=== PATIENT | male | born 1960 | race Caucasian/White ===

== ENCOUNTER 2024-08-05 11:33 | Inpatient (IN) | payer MEDICARE, OTHER ==
[~2024-08-05] VITALS: Ht 176.5 cm; Wt 77.6 kg
[2024-08-05] MEDS ORDERED: diphenhydrAMINE HCL 50 MG/ML VIAL ONE (11:44)
[2024-08-05] MEDS ORDERED: LORAZEPAM INJ 2 MG/ML VIAL ONE (11:44)
[2024-08-05] MEDS ORDERED: OLANZAPINE 10 MG VIAL IM ONE (11:44)
[2024-08-05] MEDS: LORAZEPAM INJ 2 MG/ML VIAL IM ONE (11:51)
[2024-08-05] MEDS: diphenhydrAMINE HCL 50 MG/ML VIAL IM ONE (11:51)
[2024-08-05] MEDS: OLANZAPINE 10 MG VIAL IM ONE (11:51)
[2024-08-05 12:09] LABS: BASOPHILS % (AUTO) 0.4 % (0.0-2.0); EOSINOPHILS # (AUTO) 0.1 K/uL (0.0-0.7); EOSINOPHILS % (AUTO) 1.5 % (0.0-6.0); HEMATOCRIT 51 % (39-51); HEMOGLOBIN 17.4 g/dL (13.5-17.5); LYMPHOCYTES # (AUTO) 2.4 K/uL (0.8-4.8); LYMPHOCYTES % (AUTO) 37.6 % (20.0-44.0); MEAN CORPUSCULAR HEMOGLOBIN 32 PG (26.0-33.0); MEAN CORPUSCULAR HGB CONC 34 g/dl (31.0-36.0); MEAN CORPUSCULAR VOLUME 93 fL (80-96); MONOCYTES # (AUTO) 0.3 K/uL (0.1-1.30); MONOCYTES % (AUTO) 5.1 % (2.0-12.0); NEUTROPHILS # (AUTO) 3.6 K/uL (1.8-8.9); NEUTROPHILS % (AUTO) 55.4 % (43.0-81.0); PLATELET COUNT (AUTO) 176 K/uL (150-450); RED BLOOD CELL COUNT(AUTO) 5.47 MIL/uL (4.5-6.0); RED CELL DISTRIBUTION WIDTH 14.3 % (11.5-15.0); WHITE BLOOD COUNT (AUTO) 6.5 K/uL (4.3-11.0)
[2024-08-05 12:14] LABS: CALCIUM, SERUM 9.8 mg/dL (8.5-10.1); CARBON DIOXIDE 27 mmol/L (21-32); CHLORIDE 103 mmol/L (98-107); GLUCOSE 95 mg/dL (74-106); POTASSIUM 3.9 mmol/L (3.5-5.1); SODIUM SERUM 138 mmol/L (136-145); UREA NITROGEN, BLOOD 13 mg/dL (7-18)
[2024-08-05 12:21] LABS: ACETAMINOPHEN <10 ug/ml (10-30); ALANINE AMINOTRANSFERASE 18 U/L (12-78); ALBUMIN 4.1 g/dL (3.4-5.0); ALCOHOL, BLOOD < 3 mg/dL (0-10); ALKALINE PHOSPHATASE 88 U/L (46-116); ASPARTATE AMINOTRANSFERASE 14 U/L (15-37); BILIRUBIN,DIRECT 0.2 mg/dL (0.0-0.2); BILIRUBIN,TOTAL 0.7 mg/dL (0.2-1.0); SALICYLATE 2.6 mg/dL (2.8-20.0); TOTAL PROTEIN, SERUM 8.4 g/dL (6.4-8.2)
[2024-08-05 14:24] LABS: APPEARANCE,URINE CLEAR (CLEAR); BILIRUBIN,URINE Negative (NEGATIVE); BLOOD, URINE Negative Ery/uL (NEGATIVE); COLOR,URINE YELLOW (YELLOW); KETONES,URINE Negative (NEGATIVE); LEUKOCYTE ESTERASE ,URINE Negative (NEGATIVE); PH,URINE 7.5 (5.0-8.0); PROTEIN,URINE Negative (NEGATIVE); UGLUCOSE Negative (NEGATIVE); UROBILINOGEN,URINE 0.2 EU/dL (0.2)
[2024-08-05 14:25] LABS: NITRITE, URINE NEGATIVE (NEGATIVE)
[2024-08-05 14:35] LABS: AMPHETAMINE, URINE NEGATIVE (NEGATIVE); BARBITURATE, URINE NEGATIVE (NEGATIVE); BENZODIAZEPINE, URINE NEGATIVE (NEGATIVE); COCCAINE, URINE NEGATIVE (NEGATIVE); OPIATE, URINE NEGATIVE (NEGATIVE); PHENCYCLIDINE SCREEN,URINE NEGATIVE (NEGATIVE)
[2024-08-05 14:36] LABS: CANNABINOID, URINE POSITIVE (NEGATIVE)
[2024-08-05] MEDS ORDERED: GABA300C PO (14:54)
[2024-08-05] MEDS ORDERED: [UNRECOGNIZED DRUG - OTHER] PO (14:54)
[2024-08-05] MEDS ORDERED: BUSP10TA3 PO (14:54)
[2024-08-05] MEDS ORDERED: METO50TA16 PO (14:54)
[2024-08-05] MEDS ORDERED: MAGN400T26 PO (14:54)
[2024-08-05] MEDS ORDERED: DEXL30CA3 PO (14:54)
[2024-08-05] MEDS ORDERED: ICOS1CAP PO (14:54)
[2024-08-05] MEDS ORDERED: ERGO500093 PO (14:54)
[2024-08-05] MEDS ORDERED: DIVA125C5 PO (14:54)
[2024-08-05] MEDS ORDERED: HALO100V5 IM (14:54)
[2024-08-05] MEDS ORDERED: ZOLP10TA2 PO (14:54)
[2024-08-05] MEDS ORDERED: HYDR25SU33 RC (14:54)
[2024-08-05] MEDS ORDERED: DOCU100C36 PO (14:54)
[2024-08-05] MEDS ORDERED: OMEP1PAC7 PO (14:54)
[2024-08-05 15:00] VITALS: O2SAT 99
[2024-08-05 18:20] VITALS: BP 120/78; TEMP 98.7; O2SAT 98
[2024-08-05] MEDS ORDERED: MAG HYDROX/AL HYDROX/SIMETH 30 ML UDC PO PRN (18:30)
[2024-08-05] MEDS ORDERED: MAGNESIUM HYDROXIDE 30 ML UDC PO PRN (18:30)
[2024-08-05] MEDS ORDERED: LORAZEPAM 1 MG TABLET PO PRN (18:30)
[2024-08-05] MEDS ORDERED: ZOLPIDEM TARTRATE 5 MG TABLET PO PRN (18:30)
[2024-08-05] MEDS: BLOOD SUGAR DIAGNOSTIC 1 EACH STRIP IN ONE (19:12)
[2024-08-05 20:52] VITALS: BP 148/80; TEMP 98.1; O2SAT 98
[2024-08-05] MEDS: MAGNESIUM OXIDE 400 MG TABLET PO SCH (21:25)
[2024-08-05] MEDS: GABAPENTIN 300 MG CAPSULE PO SCH (21:25)
[2024-08-06] MEDS ORDERED: OMEPRAZOLE 20 MG CAPSULE.DR PO SCH (07:30)
[2024-08-06] MEDS: HYDROCORTISONE ACETATE 25 MG/SUPP.RECT SUPP.RECT RC SCH (09:00)
[2024-08-06] MEDS: DOCUSATE SODIUM 100 MG CAPSULE PO SCH (09:00)
[2024-08-06] MEDS: METOPROLOL TARTRATE 50 MG TABLET PO SCH (09:00)
[2024-08-06] MEDS: PANTOPRAZOLE 40 MG TABLET.DR PO SCH (09:00)
[2024-08-06 11:48] LABS: BILIRUBIN,TOTAL 0.8 mg/dL (0.2-1.0); POTASSIUM 4.4 mmol/L (3.5-5.1); TOTAL PROTEIN, SERUM 8.1 g/dL (6.4-8.2)
[2024-08-06 11:50] LABS: CHOLESTEROL 187 mg/dL (<200); HDL CHOLESTEROL 45 mg/dL (40-60); LDL 119 mg/dL (0-99); TRIGLYCERIDES 117 mg/dL (30-150)
[2024-08-06] MEDS: HALOPERIDOL 5 MG TABLET PO SCH (17:00)
[2024-08-06] MEDS: BENZTROPINE MESYLATE (1 MG) 1 MG TABLET PO SCH (17:00)
[2024-08-06] MEDS: ERGOCALCIFEROL (VITAMIN D 2) 50,000 UNIT CAPSULE PO SCH (17:35)
[2024-08-06] MEDS: ACETAMINOPHEN 325 MG TABLET PO PRN (19:52)
[2024-08-06 20:00] VITALS: BP 109/65; TEMP 97.9; O2SAT 96
[2024-08-06] MEDS: DIVALPROEX SODIUM 250 MG TABLET.DR PO SCH (21:11)
[2024-08-07] MEDS: ZOLPIDEM TARTRATE 5 MG TABLET PO PRN (01:52)
[2024-08-07 08:00] VITALS: BP 128/63; TEMP 98.4; O2SAT 96
[2024-08-07 16:00] VITALS: BP 100/63; TEMP 98.6; O2SAT 98
[2024-08-07 20:00] VITALS: BP 101/63; TEMP 98.3; O2SAT 100
[2024-08-08 08:00] VITALS: BP 124/64; TEMP 97.8; O2SAT 96
[2024-08-08 16:00] VITALS: BP 105/60; TEMP 97.9; O2SAT 96
[2024-08-08 20:00] VITALS: BP_SYST 104; BP_SYST 128; BP_DIAS 60; BP_DIAS 67; TEMP 97.9; O2SAT 97; O2SAT 98
[2024-08-09] MEDS: HALOPERIDOL LACTATE INJ 5 MG/ML VIAL IM ONE (07:54)
[2024-08-09] MEDS: diphenhydrAMINE HCL 50 MG/ML VIAL IM ONE (07:54)
[2024-08-09 08:00] VITALS: BP 114/80; TEMP 97.4; O2SAT 98
[2024-08-09] MEDS: HALOPERIDOL 5 MG TABLET PO SCH (13:49)
[2024-08-09 16:00] VITALS: BP 96/70; TEMP 98; O2SAT 96
[2024-08-09] MEDS: LORAZEPAM 0.5 MG TABLET PO PRN (16:27)
[2024-08-09 20:30] VITALS: BP 112/68; TEMP 98.5; O2SAT 99
[2024-08-10 08:20] VITALS: BP 117/74; TEMP 97.7; O2SAT 100
[2024-08-10 16:53] VITALS: BP 105/70; TEMP 98.1; O2SAT 97
[2024-08-10 20:46] VITALS: BP 113/69; TEMP 98; O2SAT 97
[2024-08-11 08:00] VITALS: BP 95/70; TEMP 98.1; O2SAT 98
[2024-08-11 10:38] VITALS: BP 118/73
[2024-08-11] MEDS: HALOPERIDOL DECANOATE IM 100 MG/ML AMPUL IM SCH (11:09)
[2024-08-11] MEDS: DIVALPROEX SODIUM 250 MG TABLET.DR PO SCH (13:52)
[2024-08-11 16:00] VITALS: BP 132/79; TEMP 98; O2SAT 100
[2024-08-11 19:33] VITALS: BP 106/65; TEMP 98.1; O2SAT 98
[2024-08-12 08:00] VITALS: BP 126/70; TEMP 97.8; O2SAT 100
[2024-08-12 16:00] VITALS: BP 119/75; TEMP 98.7; O2SAT 98
[2024-08-12 20:00] VITALS: BP 98/59; TEMP 98.7; O2SAT 96
[2024-08-13 08:00] VITALS: BP 149/81; TEMP 97.8; O2SAT 98
[2024-08-13 16:00] VITALS: BP 106/69; TEMP 97.9; O2SAT 98
[2024-08-13 20:00] VITALS: BP 129/81; TEMP 97.7; O2SAT 98
[2024-08-14 08:00] VITALS: BP 129/81; TEMP 97.7; O2SAT 98
[2024-08-14 16:00] VITALS: BP 101/58; TEMP 98.9; O2SAT 96
[2024-08-14 20:02] VITALS: BP 100/56; TEMP 99; O2SAT 98
[2024-08-15 07:30] VITALS: BP 102/69; TEMP 98.3; O2SAT 97
[2024-08-15 16:00] VITALS: BP 102/64; TEMP 98.1; O2SAT 100
[2024-08-15 20:00] VITALS: BP 92/56; TEMP 98.1; O2SAT 99
[2024-08-15 20:29] VITALS: BP 92/56; TEMP 98.1; O2SAT 99
[2024-08-16 08:00] VITALS: BP 109/62; TEMP 97.8; O2SAT 98
[2024-08-16 16:00] VITALS: BP 123/69; TEMP 97.8; O2SAT 97
[2024-08-16 20:36] VITALS: BP 108/56; TEMP 97.9; O2SAT 97
[2024-08-17 08:00] VITALS: BP 106/63; TEMP 98.1; O2SAT 99
[2024-08-17 16:00] VITALS: BP 117/68; TEMP 98.1; O2SAT 100
[2024-08-17 20:00] VITALS: BP 102/55; TEMP 98.1; O2SAT 98
[2024-08-18 08:00] VITALS: BP 120/68; TEMP 97.7; O2SAT 98
[2024-08-18 09:21] VITALS: BP 120/68
== END 2024-08-18 15:42 | DRG 885 ==
LOC: ER 11:40 → GPS 17:32
PROVIDERS: ADMIT Psychiatry & Neurology Psychiatry; ATTEND Nurse Practitioner Acute Care
DX: F20.0 Paranoid schizophrenia (principal); F29 Unspecified psychosis not due to a substance or known physiological condition; F39 Unspecified mood [affective] disorder; F41.9 Anxiety disorder, unspecified; I10 Essential (primary) hypertension; Z20.822 Contact with and (suspected) exposure to COVID-19; F32.A Depression, unspecified; Z73.6 Limitation of activities due to disability; F25.0 Schizoaffective disorder, bipolar type; F12.90 Cannabis use, unspecified, uncomplicated
CPT/HCPCS: 36415; 80048-TC; 80053-TC; 80061-TC; 80076-TC; 80164-TC; 82565-TC; 82962-TC; 85025-TC; G0480; J1200; J1630; J1631; J2060; J3490